=== PATIENT | female | born 1950 | race Caucasian/White ===

== ENCOUNTER 2021-10-11 00:15 | Day surgery (SDC) | payer MEDICARE, SELFPAY ==
[2021-10-04 11:10] VITALS: BMI 20.4
--- NOTE | 2021-10-04 11:27 | PC.NURSE ---
Report to the Outpatient Waiting Room, entrance under the green pavilion located off [facility], at time __0600 on date __10/11/21 . OR Time: . - You and your visitor will be asked a series of questions to screen for COVID 19 for your protection. - A mask is required within the hospital. Preoperative COVID Testing Requirements: NONE No COVID Test needed if: (proof is required; if not received patient will have Rapid Test prior to entry) - Patient has received COVID Vaccine at least 14 days prior to procedure date or - Patient has positive COVID test result within last 90 days of surgery date. COVID Test needed if above criteria is not met If not COVID vaccinated a COVID test must be conducted within 72 hours of surgery and patient is asked to isolate self from time of testing until procedure. You will go to the [facility] for your COVID testing. The [facility] [facility] is located at the corner of [address] [facility]. You will only be called if COVID results are positive and your surgeon may reschedule your elective surgery date. Patients may have clear liquids (water, carbonated beverages, clear teas, apple juice) until 3 hours prior to surgery (0430 AM) with a maximum of 20 ounces. - No food from midnight until time of surgery - Infants may have breast milk until 4 hours before surgery, formula 6 hours prior to surgery. - Children will be allowed to drink immediately following surgery. If applicable, please bring a bottle or sippy cup to assist with drinking. Juice, water, soda, and popsicles are readily available. For infants on formula, please bring formula the day of surgery. Pacifiers are allowed. Take the following medications with a SIP of water the morning of surgery: LEVOTHYROXINE Medications to discontinue per physician NONE Date to take last dose Please no make-up, nail malaysian, hairspray, perfume, deodorant, or body powder the day of surgery. No jewelry (including any body piercings) or valuables the day of surgery, leave them at home. Please take a shower or bath the night before, or the morning of, surgery with an antibacterial soap. Wear comfortable, loose fitting clothing. Children are encouraged to wear pajamas. - Jewelry must be removed prior to entering the operating room. Rings and piercings that are not removed may be cut off. - The hospital will not accept responsibility for valuables. - Please leave all valuables, including medications, at home the day of surgery. If you are going home after surgery, a licensed test car driver must drive you home. - NO public transportation without another adult. - We recommend that an adult stay with you for 24 hours following discharge. - We also recommend that you do not drive, make important decision, drink alcoholic beverages, or take any drugs that were not prescribed by your health care provider for at least 24 hours after your discharge time. For Pediatric surgeries, we recommend two adults accompany the child home (only one inside the building at this time). One visitor will be allowed to accompany the patient into the hospital. Patients visitor will be instructed to remain with patient at all times or leave the building. We will allow the visitor to come back to the postoperative area when patient is ready. Follow any additional instructions given to you from your surgeon. Telephone instructions given to PT and asked if any additional questions and then verbalized understanding. Patient advised to call surgeon office or pre surgery nurse liaison [phone] if any additional questions.
--- NOTE | 2021-10-10 12:47 | WPDANESEPPF ---
Anes - Initial Pre Proc Eval Procedure: Operation Date: 10/11/21 08:15 Proposed Procedures p Left Trapezium Resection Arthroplasty with Arthrex Internal Brace - Ronaldo Garces MD Date/Time: 10/10/21 12:47 Surgeon: Ronaldo Garces MD Pre Op Diagnosis: Lt First Carpometacarpal Joint OA Patient Data Age: 71 Gender: F Height: 1.6 m Weight: 52.27 kg Allergies Allergy/AdvReac Type Severity Reaction Status Date / Time Penicillins Allergy Severe Anaphylaxis Verified 10/11/21 06:25 oxycodone [From OxyContin] AdvReac Mild Nausea and Verified 10/11/21 06:25 Vomiting Home Medications Medication Instructions Recorded Confirmed Type aspirin 81 mg PO DAILY 10/04/21 10/11/21 History levothyroxine 50 mcg QAM 10/04/21 10/11/21 History rosuvastatin 10 mg QAM 10/04/21 10/11/21 History Patient hx anesthesia problems: none Family hx anesthesia problems: none Results Review: All pre-operative results and documents have been reviewed as part of the pre-operative evaluation. [facility] Past Medical History Medical History (Updated 10/10/21 @ 12:50 by Claude Whittaker DO) Breast CA Hyperlipidemia Hypothyroidism TIA (transient ischemic attack) Surgical History Surgical History (Updated 10/10/21 @ 12:50 by Claude Whittaker DO) History of hysterectomy Social History Social History Smoking status: Never smoker Second hand tobacco smoke exposure: No Alcohol intake: never Substance use: never Substance use type: does not use Living arrangements: with family Spiritual care concerns: No Anes - Eval Final PreProcedure Day of Procedure 10/10/21 12:47 Patient weight: normal Heart: regular rate and rhythm Lungs: clear to auscultation and normal air movement Airway: Mallampati scale class III Neurological: alert and oriented Last oral intake: >/= 8 hours ASA classification: III Emergent: no Anesthetic plan: proceed Anesthesia type and monitoring: general LMA and standard monitoring Results Review: All pre-operative results and documents have been reviewed as part of the pre-operative evaluation. Informed Consent: The patient's anesthetic plan and its attendant risks and benefits were discussed with the patient/family/POA. Questions were solicited and answers provided to the satisfaction of the patient/family/POA.
[2021-10-11] VITALS (7 sets, daily range): BP systolic 124–145; BP diastolic 66–85; PULSE 66–85; RESP 16–23; TEMP 36.8; O2SAT 94–100
--- NOTE | ~2021-10-11 | XR_ITS ---
EXAMINATION: XR surgery orthopedic EXAM DATE: 10/11/2021 10:02 INDICATION: Arthroplasty Lt Thumb TECHNIQUE: Fluoroscopy used during XR surgery orthopedic performed by Dr. Ronaldo Garces MD. Radi ologist was not present for the imaging or procedure. Total fluoroscopic time of 60 seconds The DA P for this procedure was 0.28 mGym2. A total of 3 images sent to PACS from the exam. FINDINGS: Surgical changes at the 1st carpometacarpal region including trapezium resection. Correlat e with procedure note. IMPRESSION: Fluoroscopy used during left hand surgery. Reviewed, dictated and finalized at location A. DOCTORAL SCHOLAR
[2021-10-11] MEDS: LACTATED RINGERS 1,000 ML 30 ML IV CONT (07:01)
[2021-10-11] MEDS: ACETAMINOPHEN 500 MG TABLET 1000 MG PO (07:02)
[2021-10-11] MEDS: KETOROLAC 15 MG/ML VIAL (*BKC) IV PUSH (07:03)
--- NOTE | 2021-10-11 07:12 | WPDHPUPDATE1 ---
History and Physical Update Update Date/Time: 10/11/21 07:12 History and Physical has been reviewed, including an updated exam of the patient. There are NO changes in the patient's condition. Risks, benefits, and alternatives have been discussed and questions answered. Patient agrees to proceed with procedure.
[2021-10-11] MEDS: CLINDAMYCIN 900 MG/D5W 50 ML 900 MG/50 ML PIGGYBACK 50 MG IVPB (08:35)
[2021-10-11] MEDS: BUPIVACAINE HCL 0.5% PF 30 ML VIAL INFILTRATE (08:37)
--- NOTE | 2021-10-11 10:36 | W.PM.PROC2 ---
Procedure Note - Detailed Date of Procedure 10/11/21 Pre-op Diagnosis Lt First Carpometacarpal Joint OA Post-op Diagnosis Same Procedure Performed Left trapezium resection arthroplasty with Arthrex internal brace suspension Surgeon Ronaldo Garces MD [employer] [facility] Anesthesia General Description of Procedure The left radial wrist was marked on the patient in the holding area with her consent. She was then taken to the operating room where she was placed supine on the operating table. A time-out was held and confirmed. She was given general endotracheal anesthesia. The left upper extremity was prepped and draped in usual fashion. The tourniquet was placed on the forearm as the IV had been placed in the arm due to history of axillary dissection on the right. The site for the incision was marked and locally infiltrated with 1% lidocaine with epinephrine. The tourniquet was inflated to 250 mmHg after exsanguination with an Duncan wrap. Incision was made as marked and dissection was carried through the subcutaneous tissue. A large branch of radial cutaneous nerve was identified and dissected dorsally. This was retained with the vessel loop throughout the case. The interspace between the abductor pollicis longus and extensor pollicis brevis was incised with a 15 blade passing through the joint capsule and exposing the joint space. The trapezium was carefully dissected around the periphery using a Cornelio theodora for the most part. The bone was removed with a rongeur in piecemeal fashion. An x-ray was taken to confirm the removal of that bone. The Arthrex kit was opened and the guidewire was used to estimate the course of the 2nd metacarpal fenestration. This was confirmed with an image. The same wire was then drilled from the radial base of the 2nd metacarpal distally and ulnarly. The drill guide was passed over that and the drill hole made. The SwiveLock and tape were inserted at that site. Soon after that the SwiveLock failed. The tape was pulled out. The solution to that was to pass another SwiveLock to the same opening and this was stable. The radial base of the of the 1st metacarpal was exposed and the 2nd SwiveLock was placed at that point in same fashion and this construct was stable. An x-ray was taken to try to identify the fenestrations in the 2 metacarpals. The site was irrigated, the capsule was repaired with 4-0 Vicryl suture and the skin with running 4-0 Vicryl intradermal suture. This area was locally infiltrated with 0.5% Marcaine. The tourniquet was released and the bandage in thumb spica splint were applied. Estimated Blood Loss 2 Tourniquet Time 60 Drains No Packing No Pathology None sent Complications No immediate complications Condition Stable Disposition PACU
== END 2021-10-11 12:00 | disposition home or self-care (01) ==
PROVIDERS: PCP Family Medicine Sports Medicine; Visit Provider Plastic Surgery
PROC: (CPT 25447; principal; 2021-10-11 08:15)
DX: M18.12 Unilateral primary osteoarthritis of first carpometacarpal joint, left hand (principal); E78.5 Hyperlipidemia, unspecified; E03.9 Hypothyroidism, unspecified; Z85.3 Personal history of malignant neoplasm of breast; Z86.73 Personal history of transient ischemic attack (TIA), and cerebral infarction without residual deficits; Z79.82 Long term (current) use of aspirin
CPT/HCPCS: 25447; A9270; C1713; J1885; J2250; J2704; J3010; J7120

== ENCOUNTER 2023-10-25 10:31 | Outpatient (CLI) | payer MEDICARE, SELFPAY ==
--- NOTE | ~2023-10-25 | MR_ITS ---
MRI of the left shoulder Technique: Axial proton-density fat-sat images, coronal proton density fat-sat and T2 fat-sat images, and sagittal T1-weighted and T2 fat-sat images were acquired. Clinical History: Pain Findings: There is mild AC joint degenerative change. Coracoclavicular, coracoacromial, and coracohum eral ligaments are intact. Probable mild synovitis in the subcoracoid region. There is moderate supraspinatus and infraspinatus tendinosis, without partial or full-thickness tear. Subscapularis tendon is intact with mild tendinosis. Tendon of the long head of the biceps is intact . There is suspected superior labral tear versus sublabral recess. Inferior glenohumeral ligament is intact. Small to moderate glenohumeral joint effusion present. No f luid distention of the subacromial/subdeltoid bursa. There is mild chondromalacia of the glenohumeral joint. No muscle atrophy or edema. Impression: Probable mild synovitis in the subcortical region. This can be seen in the setting of adhesive capsul itis. Correlate clinically. Rotator cuff tendinosis without partial or full-thickness tear. Possible superior labral tear versus prominent sublabral recess. Small to moderate glenohumeral joint effusion, nonspecific. Reviewed, dictated and finalized at [facility]. Impression: Probable mild synovitis in the subcortical region. This can be seen in the sett ing of adhesive capsulitis. Correlate clinically. Rotator cuff tendinosis without partial or full-thickness tear. Possible superior labral tear versus prominent sublabral recess. Small to moderate glenohumeral joint effusion, nonspecific.
== END 2023-10-25 10:32 ==
LOC: MICIMG 10:32
PROVIDERS: PCP Family Medicine Sports Medicine
DX: M75.32 Calcific tendinitis of left shoulder (principal); M25.412 Effusion, left shoulder
CPT/HCPCS: 73221